=== PATIENT | male | born 1985 | race Caucasian/White ===

== ENCOUNTER 2018-04-27 15:41 | Emergency (ER) | payer OTHER ==
[2018-04-27 15:51] VITALS: BP 128/79
[2018-04-27] MEDS ORDERED: PROPARACAINE 0.5% 15 ML OPHT DROP ONE (15:53)
[2018-04-27] MEDS ORDERED: IBUPROFEN 600 MG TAB PO ONE (16:13)
--- NOTE | 2018-04-27 16:18 | EDPHY ---
H & P Time Seen by Provider: 04/27/18 15:57 HPI/ROS: This patient sustained a left eye injury at 10:00 a.m. At work. 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 He was also holding a piece of cardboard the tore off the box and he is uncertain if the car board struck his eye or if it was his knuckle. He reports 8/10 pain since that time with tearing from the eye and mildly for blurred vision compared to the right eye. He describes the pain as burning in nature. Has associated mild redness to the eye. ROS: Neuro: No headache. No confusion. He was not dazed from the episode. HEENT: No other facial injuries Integumentary: No lacerations abrasions 5 point ROS is otherwise negative besides what is indicated in HPI and ROS Past Medical/Surgical History: Otherwise healthy Smoking Status: Never smoked Physical Exam: Physical Exam Vital signs are normal. General: No acute distress HEENT: Atraumatic except for left eye. Eyes: Pupils equal and react to light. Extraocular motions are intact. Left eye exams all for conjunctival injection with very slight upper eyelid edema. No lacerations abrasions. No hyphema. On slit-lamp exam there is evidence of corneal abrasion a few mm in diameter to the upper cornea midline around 12 o'clock. No other floor seen uptake or corneal abnormalities are noted. No foreign bodies. Visual acuity is reviewed as per nurse's documentation. Optic fundi: Appreciate no retinal injury on a nondilated exam Cardiac: Brisk capillary refill is intact throughout. Skin: No rash or pallor. Neuro: Alert and oriented x3 with no sensorimotor deficits. Diagnosis: Corneal abrasion, blunt ocular injury, retinal injury Constitutional: Initial Vital Signs Temperature (C) 36.6 C 04/27/18 15:49 Heart Rate 55 L 04/27/18 15:49 Respiratory Rate 18 04/27/18 15:49 Blood Pressure 128/79 H 04/27/18 15:49 O2 Sat (%) 94 04/27/18 15:49 O2 Delivery Mode Room Air Allergies/Adverse Reactions: No Known Allergies Allergy (Unverified 04/27/18 15:49) Home Medications: Medication Instructions Recorded Erythromycin 0.5% 1 lewis BID #1 opht.oint 04/27/18 Ibuprofen [Motrin (*)] 600 mg PO Q6 PRN #30 tab 04/27/18 traMADol [Ultram 50 mg (*)] 50 - 100 mg PO Q4 PRN #20 tab 04/27/18 MDM/Departure - [facility] ED Course/Re-evaluation: Ibuprofen p.o.. Patient had relief of his pain from proparacaine drops prior to slit-lamp exam. I counseled patient regarding corneal injury and explaining he warranted AA further examination by [employer] aircraft to evaluate his retina more completely since he had a blunt injury. He also understands need to return emergency department should she develop any worsening of symptoms despite the treatment plan. - Depart Disposition: Home, Routine, Self-Care Clinical Impression: Corneal injury Qualifiers: Encounter type: initial encounter Laterality: left Qualified Code(s): S05.8X2A - Other injuries of left eye and orbit, initial encounter Blunt injury, left eye Qualifiers: Encounter type: initial encounter Qualified Code(s): S05.8X2A - Other injuries of left eye and orbit, initial encounter Condition: Good Instructions: Corneal Abrasion (ED) Additional Instructions: Diagnosis: Corneal injury 2. Blunt injury to left eye Plan: Call Dr. Cummings-etcher aircraft for further evaluation of her eye. Call him today in attempt to facilitate a follow-up for tomorrow or Tuesday. Erythromycin ointment twice a day for the next 5-7 days Ibuprofen Tylenol for pain control as needed Tramadol in addition for pain that prevents sleep. No work for the next day or to Make appointment follow up with your work comp clinic in addition for recheck on Tuesday Stand Alone Forms: Work Excuse Prescriptions: Erythromycin 0.5% 1 lewis BID #1 opht.oint Ibuprofen [Motrin (*)] 600 mg PO Q6 PRN #30 tab PRN Reason: Pain traMADol [Ultram 50 mg (*)] 50 - 100 mg PO Q4 PRN #20 tab PRN Reason: breakthrough pain Referrals: NONE *PRIMARY CARE P,. [Primary Care Provider] - As per Instructions Hoang Cummings MD [Medical Doctor] - As per Instructions
== END 2018-04-27 16:29 | disposition home or self-care (01) ==
LOC: CED 15:41
DX: S05.00XA Injury of conjunctiva and corneal abrasion without foreign body, unspecified eye, initial encounter (principal); W22.8XXA Striking against or struck by other objects, initial encounter; Y92.9 Unspecified place or not applicable; Y93.G3 Activity, cooking and baking